=== PATIENT | male | born 1985 | race Caucasian/White ===

== ENCOUNTER → 2018-11-12 | Outpatient (CLI) | payer OTHER | LOC: MHCPAIN 13:33 | DX: G89.29 Other chronic pain (principal); M79.2 Neuralgia and neuritis, unspecified | CPT/HCPCS: G0463 ==

== ENCOUNTER → 2018-11-26 | Outpatient (CLI) | payer OTHER | LOC: MHCPAIN 12:45 | DX: M79.18 Myalgia, other site (principal); G43.709 Chronic migraine without aura, not intractable, without status migrainosus | CPT/HCPCS: J0585 ==

== ENCOUNTER → 2019-03-25 | Outpatient (CLI) | payer OTHER | LOC: MHCPAIN 09:51 | DX: M79.2 Neuralgia and neuritis, unspecified (principal); M79.11 Myalgia of mastication muscle | CPT/HCPCS: G0463 ==